=== PATIENT | female | born 1985 | race Caucasian/White ===

== ENCOUNTER 2016-12-15 16:44 | Emergency (ER) | payer MEDICAID ==
[~2016-12-15] VITALS: Ht 152.4 cm; Wt 46.0 kg
[~2016-12-15 16:44] MED LIST: ACET325T33 PO; PREN1TAB17 PO
[2016-12-15 16:47] VITALS: Ht 152.4 cm; Wt 46.0 kg
[2016-12-15] MEDS ORDERED: METOCLOPRAMIDE 10 MG TAB PO ONE (18:00)
[2016-12-15 19:14] LABS: ADD UMIC YES; UR AMORPHOUS CRYSTAL FEW /HPF (NONE SEEN); UR ASCORBIC ACID NEGATIVE (NEGATIVE); UR BACTERIA FEW /HPF (NONE SEEN); UR BILIRUBIN (Dip) NEGATIVE (NEGATIVE); UR BLOOD (Dip) 2+ mg/dL (NEGATIVE); UR CLARITY CLOUDY (CLEAR); UR COLOR YELLOW (YELLOW); UR GLUCOSE (Dip) NEGATIVE (NEGATIVE); UR KETONES (Dip) NEGATIVE (NEGATIVE); UR LEUKOCYTE ESTERASE (Dip) 3+ Leu/ul (NEGATIVE); UR NITRITE (Dip) NEGATIVE (NEGATIVE); UR RBC 1 /HPF (0-5); UR SPECIFIC GRAVITY (Dip) 1.017 (1.003-1.030); UR SQUAMOUS EPITHELIAL CELL FEW /HPF (FEW); UR TOTAL PROTEIN (Dip) NEGATIVE (NEGATIVE); UR UROBILINOGEN (Dip) NEGATIVE (NEGATIVE)
[2016-12-15 19:17] LABS: BASOPHILS % 0.4 % (0.0-2.0); EOSINOPHILS # 0.3 10^3/ul (0.0-0.5); HEMATOCRIT 37.6 % (37.0-47.0); HEMOGLOBIN 13.2 g/dl (12.0-16.0); LYMPHOCYTES # 1.6 10^3/ul (0.8-2.9); LYMPHOCYTES % 19.1 % (15.0-51.0); MEAN CORPUSCULAR HEMOGLOBIN 31.1 pg (29.0-33.0); MEAN CORPUSCULAR HGB CONC 35.1 g/dl (32.0-37.0); MEAN CORPUSCULAR VOLUME 88.5 fl (82.0-101.0); MEAN PLATELET VOLUME 9.9 fl (7.4-10.4); MONOCYTE # 0.5 10^3/ul (0.3-0.9); MONOCYTES % 6.3 % (0.0-11.0); NEUTROPHILS % 69.5 % (39.0-77.0); PLATELET COUNT 297 10^3/UL (140-415); RED BLOOD COUNT 4.25 10^6/ul (4.20-5.40); RED CELL DISTRIBUTION WIDTH 12.6 % (11.5-14.5); WHITE BLOOD COUNT 8.6 10^3/ul (4.8-10.8)
--- NOTE | 2016-12-15 19:20 | RADRPT ---
PROCEDURE: US OB. CLINICAL INDICATION: Vaginal bleeding TECHNIQUE: Multiple sonographic images of the pelvis were obtained. Transabdominal imaging only w as performed. The images were reviewed on a PACS workstation. COMPARISON: No prior studies are available for comparison. FINDINGS: LMP: September 05, 2016 Estimated gestational age by dates: 14 weeks 3 days Estimated due date by dates 2017 Cervix was not evaluated. There is a single viable intrauterine gestation. Cardiac activity is present with 158 beats per minute. There is a cephalic presentation. Measurements were made in order to determine age. The results are as follows: BPD = 2.7 cm (14 weeks 6 days) HC = 10.5 cm (15 weeks 0 days) AC = 8.6 cm (14-week 6 days) FL = 1.6 cm (14 weeks 5 days) Composite sonographic age 14 weeks 6 days. The estimated date of delivery by ultrasound is June 09, 2017. The EFW = 107 g. The placenta is anterior. There is an anterior placental phillips. Placenta is otherwise homogeneous an d measures 1.4 cm There is no evidence for an abruption or placenta previa. There is a myometrial contraction in the posterior lower uterine segment. There is a normal amount of amniotic fluid. Maximal vertical pocket of amniotic fluid measures 4.2 c m.. Limited anatomy demonstrates normal stomach and situs. Remaining anatomy could not be as sessed on this early gestational age. IMPRESSION: 1. Single living intrauterine in cephalic presentation. Estimated gestational age by ult rasound is concordant with the expected gestational age by dates within 3 days. Estimated gestation al age by ultrasound is 14 weeks 6 days and estimated due date by ultrasound is June 09, 2017. 2. Anterior placenta without evidence of previa. Negative for sonographic evidence of placental ab ruption although this is a clinical diagnosis and ultrasound may be falsely negative in cases of abr uption. 3. Please note that due to technical error, the cervix was not evaluated. If the cervix needs to be evaluated, recommend repeat ultrasound. This was discussed with java lead architect, Garfield, who will call t he patient back for further imaging if required. RPTAT: HCTS Claudiay Sadro, Physician Date Time Electronically viewed and signed by Eliud Staples, Physician on 12/15/2016 19:30 CS/
[2016-12-15] MEDS ORDERED: ACET500C5 PO (20:22)
[2016-12-15] MEDS ORDERED: CEPH-443 PO (20:22)
--- NOTE | 2016-12-15 23:52 | ERD ---
ER Documentation Chief Complaint Date/Time DATE: 12/15/16 TIME: 23:49 Chief Complaint Complains of vag bleed and 12 wks with back pain HPI 31-year-old female patient who is a presents to the ED complaining of vaginal bleeding that started this morning. States that she has had to change 2 pads. Reports that she feels nauseous. Reports that her last menses was on September 05, 2016. Denies any chest pain, shortness of breath, abdominal pain, vomiting, diarrhea, constipation. Denies any dysuria, urgency, hematuria. ROS All systems reviewed and are negative except as per history of present illness. Medications Home Meds Active Scripts Acetaminophen* (Tylophen*) 500 Mg Capsule, 1 CAP PO Q6H Y for PAIN AND OR ELEVATED TEMP, #20 CAP Prov:MAX DANIELSON PA-C 12/15/16 Cephalexin* (Keflex*) 500 Mg Capsule, 500 MG PO TID for 7 Days, CAP Prov:MAX DANIELSON PA-C 12/15/16 Acetaminophen* (Tylenol*) 325 Mg Tablet, 1 TAB PO Q6 Y for PAIN AND OR ELEVATED TEMP, #20 TAB Prov:MAX DANIELSON PA-C 05/05/16 Reported Medications Vit-Iron Fumarate-FA ( Tablet) 1 Each Tablet, 1 TAB PO DAILY, TAB 11/05/15 Allergies Allergies: Coded Allergies: No Known Drug Allergies (Unverified Allergy, Mild, 11/05/15) PMhx/Soc History of Surgery: Yes () Anesthesia Reaction: No Hx Neurological Disorder: No Hx Respiratory Disorders: No Hx Cardiac Disorders: No Hx Psychiatric Problems: No Hx Miscellaneous Medical Probl: Yes Hx Alcohol Use: No Hx Substance Use: No Hx Tobacco Use: No Smoking Status: Never smoker Physical Exam Vitals Vital Signs Date Time Temp Pulse Resp B/P Pulse Ox O2 Delivery O2 Flow Rate FiO2 12/15/16 16:47 98.9 83 20 122/70 98 Physical Exam Const: Qme-cqx-omkwvekvg, well-nourished. In no acute distress. Head: Atraumatic, normocephalic Eyes: Normal Conjunctiva without injection. No purulent discharge. ENT: Normal external ear, nose. Moist oropharynx without tonsillar exudates. Non -erythematous pharynx. Uvula midline. No drooling. No trismus. Neck: No cervical midline tenderness. Full range of motion. No meningismus. No cervical lymphadenopathy. No JVD. Resp: Clear to auscultation bilaterally. No wheezing, rhonchi, rales, or crackles. No accessory muscle use. No retractions. Cardio: Regular rate and rhythm. No murmurs, rubs or gallops. Abd: Soft, non distended. Normal bowel sounds. No palpable masses. No rebound tenderness. No guarding. Negative McBurney's point. Negative psoas sign. Negative obturator sign. Skin: No petechiae or rashes Back: No midline tenderness. No CVA tenderness. Ext: No cyanosis, or edema. Neur: Awake and alert. Normal gait. Normal coordination. Psych: Normal Mood and Affect Result Diagram: 12/15/161841 Results 24 hrs Laboratory Tests Test 12/15/16 18:35 12/15/16 18:42 Urine Color YELLOW Urine Clarity CLOUDY Urine pH 6.0 Urine Specific [place] 1.017 Urine Ketones NEGATIVEmg/dL Urine Nitrite NEGATIVEmg/dL Urine Bilirubin NEGATIVEmg/dL Urine Urobilinogen NEGATIVEmg/dL Urine Leukocyte Esterase 3+Gloria/ul Urine Microscopic RBC 1/HPF Urine Microscopic WBC 5/HPF Urine Squamous Epithelial Cells FEW/HPF Urine Amorphous Crystals FEW/HPF Urine Bacteria FEW/HPF Urine Hemoglobin 2+mg/dL Urine Glucose NEGATIVEmg/dL Urine Total Protein NEGATIVEmg/dl White Blood Count 8.610^3/ul Red Blood Count 4.2510^6/ul Hemoglobin 13.2g/dl Hematocrit 37.6% Mean Corpuscular Volume 88.5fl Mean Corpuscular Hemoglobin 31.1pg Mean Corpuscular Hemoglobin Concent 35.1g/dl Red Cell Distribution Width 12.6% Platelet Count 49812^3/UL Mean Platelet Volume 9.9fl Neutrophils % 69.5% Lymphocytes % 19.1% Monocytes % 6.3% Eosinophils % 4.0% Basophils % 0.4% Nucleated Red Blood Cells % 0.0/100WBC Neutrophils # 6.010^3/ul Lymphocytes # 1.610^3/ul Monocytes # 0.510^3/ul Eosinophils # 0.310^3/ul Basophils # 0.010^3/ul Nucleated Red Blood Cells # 0.010^3/ul Beta HCG, Quantitative 69638.0mIU/ml Current Medications Medications (Trade) Dose Ordered Sig/Otilio Route PRN Reason Start Time Stop Time Status Last Admin Dose Admin Metoclopramide HCl (Reglan) 10 mg ONCE ONCE PO 12/15/16 18:00 12/15/16 18:01 DC 12/15/16 18:40 Procedures/MDM This is a 31-year-old female patient with no significant past medical history presents to the ED complaining of vaginal bleeding and is currently 12 weeks . She is a . Patient is afebrile and nontoxic-appearing. Patient has normal vital signs. An ultrasound, beta-hCG, CBC, type and RH, UA was ordered to evaluate patient. CBC: No evidence of severe infection or anemia Urine: No elevation in nitrites, 3+ leukocyte esterase, hematuria. Rh: O positive No indication for Rhogam at this time. beta Hc PROCEDURE: US OB. CLINICAL INDICATION: Vaginal bleeding TECHNIQUE: Multiple sonographic images of the pelvis were obtained. Transabdominal imaging only was performed. The images were reviewed on a PACS workstation. COMPARISON: No prior studies are available for comparison. FINDINGS: LMP: September 05, 2016 Estimated gestational age by dates: 14 weeks 3 days Estimated due date by dates 2017 Cervix was not evaluated. There is a single viable intrauterine gestation. Cardiac activity is present with 158 beats per minute. There is a cephalic presentation. Measurements were made in order to determine age. The results are as follows: BPD = 2.7 cm (14 weeks 6 days) HC = 10.5 cm (15 weeks 0 days) AC = 8.6 cm (14-week 6 days) FL = 1.6 cm (14 weeks 5 days) Composite sonographic age 14 weeks 6 days. The estimated date of delivery by ultrasound is June 09, 2017. The EFW = 107 g. The placenta is anterior. There is an anterior placental phillips. Placenta is otherwise homogeneous and measures 1.4 cm There is no evidence for an abruption or placenta previa. There is a myometrial contraction in the posterior lower uterine segment. There is a normal amount of amniotic fluid. Maximal vertical pocket of amniotic fluid measures 4.2 cm.. Limited anatomy demonstrates normal stomach and situs. Remaining anatomy could not be assessed on this early gestational age. IMPRESSION: 1. Single living intrauterine in cephalic presentation. Estimated gestational age by ultrasound is concordant with the expected gestational age by dates within 3 days. Estimated gestational age by ultrasound is 14 weeks 6 days and estimated due date by ultrasound is June 09, 2017. 2. Anterior placenta without evidence of previa. Negative for sonographic evidence of placental abruption although this is a clinical diagnosis and ultrasound may be falsely negative in cases of abruption. 3. Please note that due to technical error, the cervix was not evaluated. If the cervix needs to be evaluated, recommend repeat ultrasound. This was discussed with operations and maintenance supervisor, Garfield, who will call the patient back for further imaging if required. Patient's bleeding symptoms have stabilized while in the department. Patient will be treated for urinary tract infection. Patient has a single IUP to be 14 weeks and 6 days. Low suspicion for symptomatic anemia, ectopic , sepsis, PID, appendicitis, ovarian torsion, tubo-ovarian abscess, surgical abdomen, or other emergent conditions. Patient was educated that there is a risk for threatened . Patient to follow up with TEACHER EDUCATION DIRECTOR in 2 days for further evaluation and treatment. Patient is to return sooner to the ED for any worsening symptoms. Patient's questions were answered. Patient understood and agreed with discharge plan. Departure Diagnosis: Primary Impression: Vaginal bleeding in patient at less than 20 weeks ges... Condition: Stable Patient Instructions: : Your Second Trimester Changes, Adapting to : Second Trimester, Vaginal Bleed in Referrals: JAZZMINE ZARCO (PCP) [facility] YOU HAVE RECEIVED A MEDICAL SCREENING EXAM AND THE RESULTS INDICATE THAT YOU DO NOT HAVE A CONDITION THAT REQUIRES URGENT TREATMENT IN THE EMERGENCY DEPARTMENT. FURTHER EVALUATION AND TREATMENT OF YOUR CONDITION CAN WAIT UNTIL YOU ARE SEEN IN YOUR DOCTORS OFFICE WITHIN THE NEXT 1-2 DAYS. IT IS YOUR RESPONSIBILITY TO MAKE AN APPOINTMENT FOR FOLOW-UP CARE. IF YOU HAVE A PRIMARY DOCTOR --you should call your primary doctor and schedule an appointment IF YOU DO NOT HAVE A PRIMARY DOCTOR YOU CAN CALL OUR PHYSICIAN REFERRAL HOTLINE AT IF YOU CAN NOT AFFORD TO SEE A PHYSICIAN YOU CAN CHOSE FROM THE FOLLOWING [facility] [address] [facility] [address] [facility] [facility] [address] [facility]. [facility] [address] [facility]. [facility] [address] [facility]. [facility] [address] [facility]. [facility] YOU HAVE RECEIVED A MEDICAL SCREENING EXAM AND THE RESULTS INDICATE THAT YOU DO NOT HAVE A CONDITION THAT REQUIRES URGENT TREATMENT IN THE EMERGENCY DEPARTMENT. FURTHER EVALUATION AND TREATMENT OF YOUR CONDITION CAN WAIT UNTIL YOU ARE SEEN IN YOUR DOCTORS OFFICE WITHIN THE NEXT 1-2 DAYS. IT IS YOUR RESPONSIBILITY TO MAKE AN APPOINTMENT FOR FOLOW-UP CARE. IF YOU HAVE A PRIMARY DOCTOR --you should call your primary doctor and schedule and appointment IF YOU DO NOT HAVE A PRIMARY DOCTOR YOU CAN CALL OUR PHYSICIAN REFERRAL HOTLINE AT . IF YOU CAN NOT AFFORD TO SEE A PHYSICIAN YOU CAN CHOSE FROM THE FOLLOWING [facility] INSTITUTIONS: [facility] [address] [place] [address] [facility] [address] [place] [address] [facility] [address] [place], [place] [address] URGENT CARE/SPECIALTIES TEACHER EDUCATION DIRECTOR [place] [address] [address] [facility] [address] [place], [place] [id number] OFFICE FAX BRUNA FRANCONICA [address] [place], [place] [phone] BERNARD [place] [address] [place], [place] [id number] [address] [place] [address] [facility], [address] [phone] [address] [place] [address] [place], [place] [phone] [facility] [address] [place] [phone] [address] [facility] [id number] HENNING, MENA [address] [facility] [address] [address] BRIDGES, FELIX [address] [facility]. [address], [place] [address] [address] BRODY, [place] [address] [place] [address] [facility] Hours: 8:00 am - 5:00 pm Additional Instructions: Llame al doctor MAANA y rohan veronica CRISTINE PARA DENTRO DE 2-3 GARCIA.Dgale a la secretaria que nosotros le instruimos hacer esta cristine.Avise o llame si olvera condicin se empeora antes de la cristine. Regresa aqui si peor o no mejor. MAX DANIELSON PA-C Dec 15, 2016 23:52 MAX DANIELSON PA-C Dec 15, 2016 23:52
== END 2016-12-15 20:31 | disposition left against medical advice (07) ==
LOC: FTE 16:44
DX: O20.9 Hemorrhage in early pregnancy, unspecified (principal); Z3A.14 14 weeks gestation of pregnancy
CPT/HCPCS: 36415; 76805; 81001; 84702; 85025; 86900; 86901; Z7502; Z7610

== ENCOUNTER 2017-05-29 23:27 | Outpatient (CLI) | END 2017-05-30 06:25 | disposition home or self-care (01) ==

== ENCOUNTER 2017-06-01 01:31 | Inpatient (IN) | END 2017-06-04 16:15 | disposition home or self-care (01) | DRG 766 ==

== ENCOUNTER 2017-06-27 11:14 | Emergency (ER) | END 2017-06-27 13:32 | disposition home or self-care (01) ==

== ENCOUNTER 2017-09-02 19:43 | Emergency (ER) | END 2017-09-02 21:30 | disposition home or self-care (01) ==

== ENCOUNTER 2017-12-29 19:49 | Emergency (ER) | END 2017-12-29 23:10 | disposition home or self-care (01) ==

== ENCOUNTER 2018-09-14 21:15 | Emergency (ER) | payer SELFPAY ==
[~2018-09-14] VITALS: Wt 50.2 kg
[~2018-09-14 21:15] MED LIST changes: -ACET325T33 PO; +CALC600T5 PO; +CEPH-443 PO; +CETI10TA19 PO; +FER325 PO; +FLUT9.9S NASAL; +ONDA4TAB8 PO; +PHEN-538 PO
[2018-09-14 21:22] VITALS: BP 136/82; PULSE 72; RESP 18
== END 2018-09-14 23:03 | disposition left against medical advice (07) ==
LOC: FTE 21:15
DX: Z53.21 Procedure and treatment not carried out due to patient leaving prior to being seen by health care provider (principal)

== ENCOUNTER 2018-09-17 12:48 | Emergency (ER) | payer MEDICAID ==
[~2018-09-17] VITALS: Ht 149.9 cm; Wt 49.6 kg
[2018-09-17 13:12] VITALS: BP 127/78; PULSE 72; RESP 18; Ht 149.9 cm; Wt 49.6 kg
[2018-09-17] MEDS ORDERED: METR500T PO (14:21)
--- NOTE | 2018-09-17 14:27 | ERD ---
ER Documentation Chief Complaint Chief Complaint pelvic pain; painful sexual intercourse HPI Patient is a 33-year-old female who presents the ER for concerns of pelvic pain and painful sexual intercourse. Patient states that her vaginal area is burning and itchy. Patient states she had symptoms for a week now. Patient states she did see her regular physician 3 days ago and she was diagnosed with a yeast infection. She states she took "a pill" and was given a cream for yeast infections. Patient states this is not helping with her symptoms. Patient denies any fevers, chills, nausea, vomiting, UTI symptoms. Patient states her last menstrual period was 2 weeks ago. Patient denies any abdominal pain. ROS All systems reviewed and are negative except as per history of present illness. Medications Home Meds Active Scripts Metronidazole* (Flagyl*) 500 Mg Tablet, 500 MG PO BID for 7 Days, TAB Prov:UNIQUE SOTELO PA-C 09/17/18 Phenazopyridine Hcl* (Pyridium*) 200 Mg Tab, 200 MG PO TID PRN for URINARY PAIN, #6 TAB Prov:ARY JENKINS PA-C 12/29/17 Cephalexin* (Keflex*) 500 Mg Capsule, 500 MG PO BID for 7 Days, CAP Prov:ARY JENKINS PA-C 12/29/17 Cetirizine Hcl* (Cetirizine Hcl*) 10 Mg Tablet, 10 MG PO DAILY, #30 TAB Prov:TIEN VERA MD 09/02/17 Fluticasone Propionate (Flonase Allergy Relief) 9.9 Ml Jay.susp, 1 SPRAY NASAL DAILY, #1 BOTTLE TO EACH NOSTRIL Prov:TIEN VERA MD 09/02/17 Ondansetron Hcl* (Zofran*) 4 Mg Tablet, 4 MG PO Q6H for NAUSEA AND/OR VOMITING, #30 TAB Prov:SANAZ BARRON PA-C 06/27/17 Reported Medications Calcium Carbonate (CALCIUM) 600 Mg Tablet, 600 MG PO DAILY, TAB 05/30/17 Ferrous Sulfate* (Ferrous Sulfate*) 325 Mg Tabec, 325 MG PO DAILY, TAB 05/29/17 Vit-Iron Fumarate-FA ( Tablet) 1 Each Tablet, 1 TAB PO DAILY, TAB 11/05/15 Allergies Allergies: Coded Allergies: No Known Drug Allergies (Unverified Allergy, Mild, 05/29/17) PMhx/Soc History of Surgery: Yes () Anesthesia Reaction: No Hx Neurological Disorder: No Hx Respiratory Disorders: No Hx Cardiac Disorders: No Hx Psychiatric Problems: No Hx Miscellaneous Medical Probl: Yes Hx Alcohol Use: No Hx Substance Use: No Hx Tobacco Use: No FmHx Family History: No diabetes Physical Exam Vitals Vital Signs Date Temp Pulse Resp B/P (MAP) Pulse Ox O2 O2 Flow FiO2 Time Delivery Rate 09/17/18 99.2 72 18 127/78 98 13:12 (94) Physical Exam GENERAL: Well-developed, well-nourished female. Appears in no acute distress. HEAD: Normocephalic, atraumatic. EYES: Pupils are equally reactive bilaterally. EOMs grossly intact. No conjunctival erythema. ENT: Moist mucous membranes. No uvula deviation. No kissing tonsils. NECK: Supple. No meningismus. Normal range of motion of the neck. LUNG: Clear to auscultation bilaterally. No rhonchi, wheezing, rales or coarse breath sounds. HEART: Regular rate and rhythm. No murmurs, rubs or gallops. ABDOMEN: No scars, ecchymosis or rashes noted. Soft, nontender, and nondistended. Positive bowel sounds in all four quadrants. No rebound tendernes s, no guarding. (-) McBurney's point tenderness. No CVA tenderness. FEMALE GENITALIA: survey cad technician Natalee present. Exam was completed with a butcher scullion present. Normal external female genitalia. Vaginal vault appears erythematous and irritated. Cream noted within the vault. Cervix visualized, appears erythematous. Normal sized uterus with no adnexal fullness or cervical motion tenderness. EXTREMITIES: Equal pulses bilaterally. No peripheral clubbing, cyanosis or edema. No unilateral leg swelling. NEUROLOGIC: Alert and oriented. Moving all four extremities without any difficulty. Normal speech. Steady gait. SKIN: Normal color. Warm and dry. No rashes or lesions. Results 24 hrs Laboratory Tests Test 09/17/18 13:54 09/17/18 13:55 Bedside Urine pH (LAB) 7.0 Bedside Urine Protein (LAB) Negative Bedside Urine Glucose (UA) Negative Bedside Urine Ketones (LAB) Negative Bedside Urine Blood Negative Bedside Urine Nitrite (LAB) Negative Bedside Urine Leukocyte Esterase (L Negative POC Beta HCG, Qualitative NEGATIVE Procedures/MDM MEDICAL DECISION MAKING: This is a 33-year-old female who presents with pelvic pain and dyspareunia x1 week. Patient states she has seen her doctor and she was diagnosed with these infection however she has been taking antifungal medications with no alleviation of symptoms.. Vital signs were reviewed. Patient was afebrile. Urine test was negative. Urine dip was negative. Wet mount was positive for clue cells. Patient likely has BV. Patient will be treated with Flagyl. Patient advised not to drink when taking this medication. Low suspicion for ectopic , ovarian torsion, PID, tubo-ovarian abscess, fibroids, endometriosis, vulvovaginitis, pyelonephritis, UTI, appendicitis, diverticulitis, bowel obstruction, perirectal abscess. Patient was nontoxic, [id number] prior to discharge. PRESCRIPTIONS: Flagyl DISCHARGE: At this time, patient is stable for discharge and outpatient management. I have instructed the patient to follow-up with his/her primary care physician in 1-2 days. I have discussed with the patient the possibility of needing to see a specialist for further workup and diagnostic studies if the pain persists. I have instructed the patient to promptly return to the ER at any time for any new or worsening symptoms including increased pain, nausea, vomiting, vaginal bleeding, weakness or fever. The patient and/or family expressed understanding of and agreement with this plan. All questions were answered. Home care instructions were provided. Disclaimer: Inadvertent spelling and grammatical errors are likely due to EHR/dictation software use and do not reflect on the overall quality of patient care. Also, please note that the electronic time recorded on this note does not necessarily reflect the actual time of the patient encounter. Departure Diagnosis: Primary Impression: Bacterial vaginosis Condition: Fair Patient Instructions: Vaginal Infection: Bacterial Vaginosis Additional Instructions: No carmina alcohol con la medicina. Llame al doctor MAANA y rohan veronica CRISTINE PARA DENTRO DE 1-2 GARCIA.Dgale a la secretaria que nosotros le instruimos hacer esta cristine.Avise o llame si olvera condicin se empeora antes de la cristine. Regresa aqui si peor o no mejor. UNIQUE SOTELO PA-C September 17, 2018 14:27
== END 2018-09-17 14:56 | disposition home or self-care (01) ==
LOC: FTE 12:48
DX: N76.0 Acute vaginitis (principal)
CPT/HCPCS: 81003; 81025; 87210; Z7502; 99283